=== PATIENT | male | born 1955 | race Caucasian/White ===

== ENCOUNTER → 2021-02-17 | Day surgery (SDC) | payer MEDICARE, OTHER ==
[~2021-02-17] VITALS: Ht 172.7 cm; Wt 90.7 kg
[~2021-02-17] MED LIST: ALBUTEROL; CLARITIN 10MG T10 MG PO; GABAPENTIN800 MG PO; HYDROCODONE-AC1 EAC1 PO; IBUPROFEN800 MG PO; METOPROLOL SUC100 MG PO
[2021-02-17 09:58] LABS: BUN/CREATININE RATIO 23 (0-10)
[2021-02-17 10:05] LABS: HEMOGLOBIN 14.1 gm/dl (14.0-17.5); RED BLOOD COUNT 4.3 M/UL (4.20-5.50); WHITE BLOOD COUNT 10.4 K/UL (4.5-11.0)
== END | disposition home or self-care (01) ==
LOC: OR 08:47
PROVIDERS: Orthopaedic Surgery
DX: S42.211A Unspecified displaced fracture of surgical neck of right humerus, initial encounter for closed fracture (principal); S42.301A Unspecified fracture of shaft of humerus, right arm, initial encounter for closed fracture; S42.201A Unspecified fracture of upper end of right humerus, initial encounter for closed fracture; I10 Essential (primary) hypertension; J44.9 Chronic obstructive pulmonary disease, unspecified; R94.31 Abnormal electrocardiogram [ECG] [EKG]; Z79.899 Other long term (current) drug therapy; Z79.891 Long term (current) use of opiate analgesic; Z20.822 Contact with and (suspected) exposure to COVID-19; W07.XXXA Fall from chair, initial encounter
CPT/HCPCS: 36415; 71045; 73060; 76000; 80048; 85025; 93005; C1713; J0690; J2001; J2250; J2704; J2710; J3010; J7030; J7120; U0002